=== PATIENT | male | born 1965 | race Caucasian/White ===

== ENCOUNTER 2017-10-17 15:45 | Emergency (ER) | payer OTHER ==
[~2017-10-17] VITALS: Ht 167.6 cm; Wt 73.5 kg
[2017-10-17 15:51] VITALS: BP 141/88; Ht 167.6 cm; Wt 73.5 kg
== END 2017-10-17 16:33 | disposition home or self-care (01) ==
LOC: ED 15:45
DX: Z02.89 Encounter for other administrative examinations (principal); L02.414 Cutaneous abscess of left upper limb; L02.413 Cutaneous abscess of right upper limb; I10 Essential (primary) hypertension; F17.210 Nicotine dependence, cigarettes, uncomplicated; Z71.6 Tobacco abuse counseling
CPT/HCPCS: 99406

== ENCOUNTER 2018-03-15 22:44 | Inpatient (IN) | payer OTHER ==
[~2018-03-15] VITALS: Ht 170.2 cm; Wt 77.7 kg
[2018-03-15 23:25] LABS: BASOPHIL % 0.8 % (0-2); PLATELET COUNT 222 x10^3mcL (130-400)
[2018-03-15 23:28] LABS: RED CELL DISTRIBUTION WIDTH 15.1 % (11.5-14.5)
[2018-03-15 23:38] LABS: CALCIUM 8.3 mg/dL (8.5-10.1); CARBON DIOXIDE 29.1 mmol/L (21-32); CHLORIDE SERUM 96 mmol/L (98-107); CREATININE SERUM 0.9 mg/dL (0.7-1.3); GFR1 > 60 mL/min; GLUCOSE SERUM 85 mg/dL (74-106); POTASSIUM SERUM 3.2 mmol/L (3.5-5.1); SODIUM SERUM 134 mmol/L (136-145)
[2018-03-15 23:42] LABS: ALKALINE PHOSPHATASE 114 U/L (46-116); ALT/SGPT 26 U/L (16-63); AST/SGOT 38 U/L (15-37); BILIRUBIN TOTAL 0.8 mg/dL (0.20-1.00); TOTAL PROTEIN, SERUM 8.1 g/dL (6.4-8.2)
[2018-03-15 23:43] LABS: ALBUMIN 2.9 g/dL (3.4-5.0)
[2018-03-16 00:31] LABS: T3 TOTAL 1.06 ng/mL
[2018-03-16 00:32] LABS: MAGNESIUM 1.9 mg/dL (1.8-2.4); PHOSPHOROUS 3.7 mg/dL (2.5-4.9)
[2018-03-16 00:37] VITALS: BP 119/71
[2018-03-16 00:37] LABS: FREE T4 1.39 ng/dL (0.76-1.46); T4(THYROXINE) 8.9 ug/dL (4.7-13.3)
[2018-03-16 00:44] VITALS: Ht 170.2 cm; Wt 77.7 kg
[2018-03-16 05:55] VITALS: BP 94/57
[2018-03-16 06:13] LABS: BASOPHIL % 0.3 % (0-2); PLATELET COUNT 183 x10^3mcL (130-400)
[2018-03-16 06:28] LABS: CALCIUM 7.9 mg/dL (8.5-10.1); CARBON DIOXIDE 28.6 mmol/L (21-32); CHLORIDE SERUM 100 mmol/L (98-107); CREATININE SERUM 0.7 mg/dL (0.7-1.3); GFR1 > 60 mL/min; GLUCOSE SERUM 99 mg/dL (74-106); SODIUM SERUM 136 mmol/L (136-145)
[2018-03-16 07:06] LABS: RED CELL DISTRIBUTION WIDTH 14.8 % (11.5-14.5)
[2018-03-16 09:20] VITALS: BP 99/52
[2018-03-16 13:56] VITALS: BP 100/62
[2018-03-16 16:43] LABS: UA SPECIFIC GRAVITY >=1.030 (1.005-1.035); microscopic required? YES; urine erythrocyte NEGATIVE (NEGATIVE)
[2018-03-16 16:53] LABS: AMPHETAMINE QUAL UR POSITIVE (See below)
[2018-03-16 17:42] VITALS: BP 97/63
[2018-03-16 21:01] VITALS: BP 98/52
[2018-03-17 05:33] VITALS: BP 102/62
[2018-03-17 07:23] LABS: CARBON DIOXIDE 25.7 mmol/L (21-32); CHLORIDE SERUM 104 mmol/L (98-107); CREATININE SERUM 0.6 mg/dL (0.7-1.3); GFR1 > 60 mL/min; GLUCOSE SERUM 77 mg/dL (74-106); MAGNESIUM 1.7 mg/dL (1.8-2.4); POTASSIUM SERUM 3.5 mmol/L (3.5-5.1); SODIUM SERUM 137 mmol/L (136-145)
[2018-03-17 07:34] LABS: BASOPHIL % 0.3 % (0-2); PLATELET COUNT 218 x10^3mcL (130-400)
[2018-03-17 07:35] LABS: RED CELL DISTRIBUTION WIDTH 15.3 % (11.5-14.5)
[2018-03-17 08:56] VITALS: BP 111/68
[2018-03-17] MEDS ORDERED: CLINDAMYCIN HC300 MG PO (09:02)
[2018-03-17] MEDS ORDERED: LAC PO (09:03)
[2018-03-17 13:18] VITALS: BP 111/68
== END 2018-03-17 17:00 | disposition home or self-care (01) | DRG 383 ==
LOC: ED 22:44 → DU 23:37 → MU 03-17 08:10
PROVIDERS: Emergency Medicine; Family Medicine
DX: L03.116 Cellulitis of left lower limb (principal); E44.0 Moderate protein-calorie malnutrition; M06.9 Rheumatoid arthritis, unspecified; I10 Essential (primary) hypertension; B19.20 Unspecified viral hepatitis C without hepatic coma; D64.9 Anemia, unspecified; E87.6 Hypokalemia; I73.9 Peripheral vascular disease, unspecified; I87.8 Other specified disorders of veins; Z68.25 Body mass index [BMI] 25.0-25.9, adult
CPT/HCPCS: 83880; 84439; 97110-GP; 97535-GP; J1644; J1885; J3370; J3480; J3490; J7030; J7050; Q0092